=== PATIENT | male | born 1990 | race Caucasian/White ===

== ENCOUNTER 2022-11-27 09:27 | Emergency (ER) | payer BC ==
[2022-11-27] MEDS ORDERED: Proparacaine 0.5% Ophth Soln 15 ML Bottle EYERT STA (09:40)
[2022-11-27] MEDS ORDERED: Tetracaine HCl/PF 0.5% 4 ML Bottle EYERT ONE (09:43)
== END 2022-11-27 11:14 | disposition home or self-care (01) ==
LOC: MW.ED 09:27
DX: H10.9 Unspecified conjunctivitis (principal)
CPT/HCPCS: 99282; 99283; J3490

== ENCOUNTER 2025-06-29 15:37 | Emergency (ER) | payer BC ==
[2025-06-29] MEDS: Diphtheria,Pertussis(Acell),Tetanus Vaccine 0.5 ML Syringe IM ONE (16:25)
[2025-06-29] MEDS: Bacitracin Oint 1 GM U/D Packet TOP ONE (16:59)
== END 2025-06-29 17:03 | disposition home or self-care (01) ==
LOC: MW.ED 15:37
DX: S61.432A Puncture wound without foreign body of left hand, initial encounter (principal); Z23 Encounter for immunization; X58.XXXA Exposure to other specified factors, initial encounter
CPT/HCPCS: 73130; 90471; 90715; 96372; 99283; J0690